=== PATIENT | female | born 1960 | race Caucasian/White ===

== ENCOUNTER → 2020-02-14 | Outpatient (CLI) | payer OTHER ==
--- NOTE | 2020-02-14 16:35 | CONS ---
CONSULTATION DATE OF SERVICE: 02/14/2020 This patient is a a 59-year-old lady who has been evaluated in Sleep Center for possible obstructive sleep apnea-hypopnea syndrome. HISTORY OF PRESENT ILLNESS/SLEEP-WAKE EVALUATION: The patient had a sleep study about 30 years ago in another institution. At that time she was told about obstructive sleep apnea, but treatment was not recommended. At present her sleep schedule on weekdays is from 9 or 11 p.m. until 6 or 7 a.m., on weekends from around 10 or 11 p.m. until 6 or 7 a.m. No problems with falling asleep, although she has a TV set in the bedroom. She sleeps in different positions while in bed and sometimes she sleeps in a chair. She snores and has witnessed episodes by her family of stopped breathing. She wakes up from sleep 3 times with occasional episodes of nocturia. She also wakes up with a dry mouth. In the morning the patient wakes up tired, worries about her sleep, has episodes of claustrophobia. [place] Sleepiness Scale is significantly increased at 12. She may take one nap about 3 or 4 p.m. She drinks up to 2 caffeinated beverages during the day. No history of hypnagogic hallucinations, sleep paralysis or cataplexy. PAST MEDICAL HISTORY: Positive for hypothyroidism. PAST SURGICAL HISTORY: Bilateral knee replacement, cholecystectomy, tubal ligation, sinus problems. FAMILY HISTORY: Hypertension, cancer, snoring and diabetes. REVIEW OF SYSTEMS: Multiple awakenings from sleep, sleepiness during the day. PHYSICAL EXAMINATION: GENERAL: A pleasant lady without distress. VITAL SIGNS: BP 154/81, HR 72, RR 15, height 5 feet 1 inch, weight 261 pounds, BMI 49.3, temperature 97.9, oxygen saturation at room air 97%. HEENT: PERRLA, EOMI. Evaluation of oropharynx showed tongue protrudes midline. Extremely low position of soft palate. Mallampati IV. NECK: Supple. No JVD. Thyroid is not palpable. Neck measures 18 inches in circumference. LUNGS: Clear to percussion and to auscultation. Good air exchange. No wheezing or rhonchi. HEART: S1, S2 regular. No murmurs, gallops or rubs. ABDOMEN: Obese. EXTREMITIES: No clubbing or cyanosis. PORCELAIN ENAMELING SUPERVISOR: Awake, alert, and oriented X3. Cranial nerves 2 to 7 intact. There is no fasciculation or atrophy. noted. No focal deficits observed. IMPRESSION: 1. Snoring, witnessed episodes of stopped breathing during sleep, extremely low position of soft palate, Mallampati IV, wide neck at 18 inches in circumference, sleepiness, [place] Sleepiness Scale increased at 12; obstructive sleep apnea- hypopnea syndrome. 2. Obesity. BMI 49.3. 3. Hypothyroidism. 4. History of sinus problems. 5. Status post cholecystectomy. 6. Status post bilateral knee replacement. 7. Status post tubal ligation. PLAN: 1. Polysomnography for evaluation of patient's breathing during sleep. 2. CPAP/BiPAP titration if sleep study confirms obstructive sleep apnea-hypopnea syndrome. 3. Preferable position during sleep on the side. 4. No driving if patient feels any sleepiness. 5. I will see patient for follow up visit to explain results of testing and following plan. Thank you very much for referring this patient for consultation. Sincerely, Sánchez Guerrero MD, PhD, FAASM Diplomat of [employer] [place] [employer] Retail Helper of [facility] [place] MMODL / IJN: [id number] /
== END | disposition home or self-care (01) ==
LOC: SLEEP 14:43
PROVIDERS: ATTEND Internal Medicine
DX: G47.33 Obstructive sleep apnea (adult) (pediatric) (principal); E03.9 Hypothyroidism, unspecified; Z96.653 Presence of artificial knee joint, bilateral; Z96.698 Presence of other orthopedic joint implants; Z98.51 Tubal ligation status; Z90.49 Acquired absence of other specified parts of digestive tract; E66.9 Obesity, unspecified; Z68.42 Body mass index [BMI] 45.0-49.9, adult; Z99.89 Dependence on other enabling machines and devices
CPT/HCPCS: 99201

== ENCOUNTER → 2020-04-09 | Outpatient (CLI) | payer OTHER ==
--- NOTE | 2020-04-10 01:42 | SFUN ---
SLEEP CENTER FOLLOW UP NOTE DATE OF SERVICE: 04/09/2020 59-year-old lady who has been followed in Sleep Center to discuss results for sleep study and following plan. I discussed results of sleep study with the patient in detail. Diagnostic polysomnogram showed extremely severe obstructive sleep apnea-hypopnea syndrome with apnea-hypopnea index 58.6, and oxygen desaturation to 79.8%. I discussed with the patient plan of the treatment with CPAP. The patient has concern about difficulties to tolerate CPAP mask. She would like to try under the nose Dream Wear mask because when she was for the sleep study, sterilisation technician tried nasal pillow mask, but she did not like the mask. [place] Sleepiness Scale today significantly increased to 13. MEDICATIONS: Levothyroxine 200 mcg/g once a day daily, Aleve on a p.r.n. basis. PHYSICAL EXAM: Patient in no distress, BP 141/57, HR 70, RR 15, height 5 feet 1 inch, weight 259, BMI 48.9, oxygen saturation at room air 96%; oropharynx extremely low position of soft palate. Mallampati 4. NECK: Supple, no JVD. Thyroid is not palpable. LUNGS: Clear to percussion and to auscultation. Good air exchange. No wheezing or rhonchi. HEART: S1, S2 regular. No murmurs, gallops, or rubs. ABDOMEN: Obese. Soft and nontender. Bowel sounds are present. No organomegaly appreciated. EXTREMITIES: No clubbing or cyanosis. ELECTRIC POWERLINE EXAMINER: Awake, alert, and oriented X3. Cranial nerves 2 to 7 intact. There is no fasciculation or atrophy. noted. No focal deficits observed. IMPRESSION: 1. Severe obstructive sleep apnea-hypopnea syndrome. 2. Morbid obesity. 3. Hypothyroidism. 4. History of sinus problems. 5. Status post cholecystectomy. 6. Status post bilateral knee replacement. 7. Status post tubal ligation. PLAN: 1. CPAP titration for correction of respiratory abnormalities during sleep. 2. I wrote prescription for dream wear under the nose mask for desensitization at home to prepare patient for titration. 3. Losing weight. 4. Sleep hygiene with regular time in bed for at least 8 hours. 5. No driving if feeling sleepiness. Thank you very much for allowing me to participate in management of your patient. Sincerely, Sánchez Guerrero MD, PhD, FAASM Diplomat of [place] [employer] [place] [employer] Office Helper of [facility] [place] MMARCELIA / MICHELLEN: [id number] /
== END | disposition home or self-care (01) ==
LOC: SLEEP 14:43
PROVIDERS: ATTEND Internal Medicine
DX: G47.33 Obstructive sleep apnea (adult) (pediatric) (principal); E66.01 Morbid (severe) obesity due to excess calories; E03.9 Hypothyroidism, unspecified; Z68.42 Body mass index [BMI] 45.0-49.9, adult; Z87.39 Personal history of other diseases of the musculoskeletal system and connective tissue; Z90.49 Acquired absence of other specified parts of digestive tract; Z96.653 Presence of artificial knee joint, bilateral; Z98.51 Tubal ligation status; Z79.890 Hormone replacement therapy; Z79.1 Long term (current) use of non-steroidal anti-inflammatories (NSAID)

== ENCOUNTER → 2020-06-18 | Outpatient (CLI) | payer OTHER ==
--- NOTE | 2020-06-18 11:57 | SFUN ---
SLEEP CENTER FOLLOW UP NOTE DATE OF SERVICE: 06/18/2020 This 59-year-old lady who has been followed in Sleep Center for treatment of obstructive sleep apnea-hypopnea syndrome. Recently, patient had a polysomnogram which showed severe sleep apnea and then she has had CPAP titration and during titration her respiration normalized. Then I prescribed her CPAP unit and she was started on treatment with CPAP. Today is his first visit to Sleep Center after she was started on treatment with CPAP. She feels better. She sleeps better and she feels better during the day. [place] Sleepiness Scale is 9. I checked her CPAP unit. Range of the pressure 5 to 15, average pressure 12.9, usage 26 out of 30 nights more than 4 hours, average usage 5.7 hours per night, which indicated good compliance. Leak is 11 L/minute which is acceptable. Apnea-hypopnea index only 0.6, which is absolutely perfect. MEDICATIONS: Levothyroxine, Aleve. PHYSICAL EXAMINATION: GENERAL: Patient in no distress. VITAL SIGNS: BP 170/78, HR 70, RR 15, weight 263.4, temperature 98.0, oxygen saturation is at room air 96%. HEENT: PERRLA, EOMI. Oropharynx extremely low position of soft palate, Mallampati 4. NECK: Supple, no JVD. Thyroid is not palpable. LUNGS: Clear to percussion and to auscultation. Good air exchange. No wheezing or rhonchi. HEART: S1, S2 regular. No murmurs, gallops, or rubs. ABDOMEN: Obese. EXTREMITIES: No clubbing or cyanosis. BIOLOGICAL SCIENTIST: Awake, alert, and oriented X3. Cranial nerves 2 to 7 intact. There is no fasciculation or atrophy. noted. No focal deficits observed. IMPRESSION: 1. Severe obstructive sleep apnea-hypopnea syndrome; apnea-hypopnea index 58.6 with oxygen saturation 79.8% on full control with CPAP. The patient demonstrated great compliance with treatment, benefitting from treatment. 2. Hypertension in the office today. 3. Hypothyroidism. 4. History of sinus problems. 5. Status post cholecystectomy. 6. Status post bilateral knee replacement. 7. Status post tubal ligation. PLAN: 1. I discussed with the patient necessity to remove all water in the morning and to make all equipment dry. Discussed position of the CPAP unit during sleep. 2. Patient will continue to use PAP equipment every night for the whole night. 3. Sleep hygiene with regular time in bed for at least 7-1/2 to 8 hours. 4. Precautions related to driving. No driving if feeling sleepiness. 5. I will maintain all necessary prescription for PAP supplies including mask, tube, filters. 6. Watching weight. 7. No driving if feeling sleepiness. 8. Follow-up visit in 6 months or earlier if patient has any problems. 9. Monitoring of blood pressure on low-sodium diet. Thank you very much for allowing me to participate in management of your patient. Sincerely, Sánchez Guerrero MD, PhD, FAASM Diplomat of [place] [employer] [place] [employer] Quality Assurance Intern of [facility] [place] MMODL / MICHELLEN: [id number] /
== END ==
LOC: SLEEP 10:42
PROVIDERS: ATTEND Internal Medicine
DX: G47.33 Obstructive sleep apnea (adult) (pediatric) (principal); I10 Essential (primary) hypertension; E03.9 Hypothyroidism, unspecified; Z87.09 Personal history of other diseases of the respiratory system; Z90.49 Acquired absence of other specified parts of digestive tract; Z96.653 Presence of artificial knee joint, bilateral; Z98.51 Tubal ligation status

== ENCOUNTER → 2021-01-08 | Outpatient (CLI) | payer OTHER ==
--- NOTE | 2021-01-08 12:11 | SFUN ---
SLEEP CENTER FOLLOW UP NOTE DATE OF SERVICE: 01/08/2021. 60-year-old lady has been followed in Sleep Center for treatment of obstructive sleep apnea-hypopnea syndrome. The patient continued to use her CPAP equipment every night for the whole night, sleeps well with the machine getting all her supplies in time. No snoring. [place] Sleepiness Scale is 7, which is in normal range. I checked CPAP unit. Air filter needs to be replaced. Usage 27 out of 30 nights and 22 out of 30 nights for more than 4 hours, average 5.2 hours per night. Leak is 13 L/minute. Apnea-hypopnea index is 0.8 which is totally normal. CURRENT MEDICATIONS: Levothyroxine 112 mcg once a day. PHYSICAL EXAMINATION: GENERAL: Patient in no distress. BP 130/82, HR 72, RR 15, height 5 feet 1 inch, weight 254.4, body mass index 37.9, temperature 97.3, oxygen saturation at room air 96%. Oropharynx extremely low position of soft palate, Mallampati 4. NECK: Supple, no JVD. Thyroid is not palpable. LUNGS: Clear to percussion and to auscultation. Good air exchange. No wheezing or rhonchi. HEART: S1, S2 regular. No murmurs, gallops, or rubs. ABDOMEN: Soft and nontender. Bowel sounds are present. No organomegaly appreciated. EXTREMITIES: No clubbing or cyanosis. TOW DRIVER: Awake, alert, and oriented X3. Cranial nerves 2 to 7 intact. There is no fasciculation or atrophy. noted. No focal deficits observed. IMPRESSION: 1. Severe obstructive sleep apnea-hypopnea syndrome. Original apnea-hypopnea index 58.6 with oxygen desaturation to 79.8%. The patient demonstrated great compliance with treatment. Totally normal respiration on treatment. 2. Hypothyroidism. 3. History of sinus problems. 4. Status post cholecystectomy. 5. Status post bilateral knee replacement. 6. Status post tubal ligation. 7. Obesity, body mass index 47.9. The patient lost 9 pounds since previous visit. PLAN: 1. I replaced the air filter. 2. Patient will continue to use PAP equipment every night for the whole night. 3. Sleep hygiene with regular time in bed for at least 7-1/2 to 8 hours. 4. Precautions related to driving. No driving if feeling sleepiness. 5. I will maintain all necessary prescription for PAP supplies including mask, tube, filters. 6. Watching weight. 7. Follow-up visit in 6 months or earlier if patient has any problems. Thank you very much for allowing me to participate in management of your patient. Sincerely, Sánchez Guerrero MD, PhD, FAASM Diplomat of [place] [employer] Sleep Medicine Board of [place] [employer] Products Sales Engineer of [facility] [place] [email or web address] / MICHELLEN: [id number] /
== END ==
LOC: SLEEP 11:18
PROVIDERS: ATTEND Internal Medicine
DX: G47.33 Obstructive sleep apnea (adult) (pediatric) (principal); E03.9 Hypothyroidism, unspecified; E66.9 Obesity, unspecified; Z87.09 Personal history of other diseases of the respiratory system; Z90.49 Acquired absence of other specified parts of digestive tract; Z96.651 Presence of right artificial knee joint; Z96.652 Presence of left artificial knee joint; Z68.42 Body mass index [BMI] 45.0-49.9, adult; Z99.89 Dependence on other enabling machines and devices; Z98.51 Tubal ligation status

== ENCOUNTER → 2022-07-30 | Outpatient (CLI) | payer OTHER ==
[2022-08-02 11:42] LABS: Almond IgE <0.10 kU/L (<0.10); Almond IgE Class CLASS 0; Brazil Nut IgE <0.10 kU/L (<0.10); Brazil Nut IgE Class CLASS 0; Cashew IgE <0.10 kU/L (<0.10); Cashew IgE Class CLASS 0; Hazelnut IgE <0.10 kU/L (<0.10); Hazelnut IgE Class CLASS 0; Macadamia Nut IgE 0.33 kU/L (<0.10); Macadamia Nut IgE Class CLASS 0/1; Peanut IgE <0.10 kU/L (<0.10); Pecan IgE <0.10 kU/L (<0.10); Pecan IgE Class CLASS 0; Pine Nut, Pignoles IgE <0.10 kU/L (<0.10); Pine Nut, Pignoles IgE Class CLASS 0; Pistachio IgE Class CLASS 0; Sweet Chestnut IgE <0.10 kU/L (<0.10); Sweet Chestnut IgE Class CLASS 0; Walnut (Food) IgE Class CLASS 0; Walnut IgE (Food) <0.10 kU/L (<0.10)
== END | disposition home or self-care (01) ==
LOC: LABWHC1 11:39
PROVIDERS: ATTEND Internal Medicine
DX: T78.2XXA Anaphylactic shock, unspecified, initial encounter (principal)
CPT/HCPCS: 36415; 86003

== ENCOUNTER → 2022-08-24 | Outpatient (CLI) | payer OTHER | END | disposition home or self-care (01) | LOC: LABWHC1 12:20 | PROVIDERS: ATTEND Internal Medicine | DX: T78.2XXA Anaphylactic shock, unspecified, initial encounter (principal) | CPT/HCPCS: 36415 ==